=== PATIENT | female | born 2005 ===

== ENCOUNTER 2024-08-10 19:04 | Emergency (ER) | payer OTHER ==
[~2024-08-10] VITALS: Ht 165.1 cm; Wt 52.3 kg
[2024-08-10 19:16] VITALS: BP 109/91; PULSE 82; RESP 15; TEMP 98; O2SAT 98
[2024-08-10] MEDS ORDERED: DOCU100C33 PO (19:40)
[2024-08-10] MEDS ORDERED: DOXY-466 PO (19:40)
[2024-08-10] MEDS ORDERED: FERR-89 PO (19:40)
[2024-08-10] MEDS ORDERED: METR500 PO (19:40)
[2024-08-10 19:59] LABS: APPEARANCE,URINE CLEAR (CLEAR); BILIRUBIN,URINE NEGATIVE (NEGATIVE); COLOR,URINE LIGHT YELLOW (YELLOW); GLUCOSE, URINE (UA) NEGATIVE (NEGATIVE); KETONES,URINE NEGATIVE (NEGATIVE); LEUKOCYTE ESTERASE ,URINE NEGATIVE (NEGATIVE); NITRATE,URINE NEGATIVE (NEGATIVE); OCCULT BLOOD,URINE NEGATIVE (NEGATIVE); PH,URINE 7.5 (5.0-8.0); PROTEIN,URINE NEGATIVE (NEGATIVE); SPECIFIC GRAVITIY, URINE 1.018 (1.003-1.030); UROBILINOGEN,URINE <=1.0 mg/dL (<=1.0)
[2024-08-10 20:03] LABS: RBC,URINE 0-2 /HPF (0-2)
[2024-08-10 20:04] LABS: BACTERIA,URINE Few /HPF (None Seen); SQUAMOUS EPITHELIAL CELL,UR Few /LPF (None Seen); WBC,URINE 0-2 /HPF (0-5)
== END 2024-08-10 21:22 | disposition left against medical advice (07) ==
LOC: EMS 19:10
DX: M54.50 Low back pain, unspecified (principal); Z53.21 Procedure and treatment not carried out due to patient leaving prior to being seen by health care provider
CPT/HCPCS: 81001; 84703